=== PATIENT | male | born 1950 | race Caucasian/White ===

== ENCOUNTER 2019-03-10 21:12 | Emergency (ER) | payer MEDICARE ==
[~2019-03-10] VITALS: Ht 170.2 cm; Wt 82.0 kg
--- NOTE | 2019-03-10 21:34 | NUR ---
PT C/O FOOD POISONING. NAUSEA/VOMITING SINCE 1999, LAST ATE 1300. CONNECTED TO MONITORING. CALL LIGHT IN REACH. MD AT BEDSIDE. AWAITING ORDERS AT THIS TIME.
[2019-03-10] MEDS ORDERED: SODIUM CHLORIDE 0.9% 1,000 ML IV ONE (21:47)
[2019-03-10] MEDS ORDERED: ONDANSETRON 2MG/ML, 2ML IVPush ONE (22:00)
[2019-03-10] MEDS ORDERED: FAMOTIDINE 20 MG/2 ML IVPush ONE (22:00)
[2019-03-10] MEDS ORDERED: SODIUM CHLORIDE FLUSH 10ML SYR IVF ONE (22:00)
[2019-03-10] MEDS ORDERED: FAMOTIDINE 20 MG/2 ML ONE (22:24)
[2019-03-10] MEDS ORDERED: ONDANSETRON 2MG/ML, 2ML ONE (22:24)
--- NOTE | 2019-03-10 22:28 | NUR ---
IV START. LABS DRAWN. IVF STARTED. MEDS ADMIN PER APR. PT RESTING COMFORTABLY ON GURNEY. SHRUTHI.
[2019-03-10 22:41] LABS: MEAN CORPUSCULAR HEMOGLOBIN 32.8 pg (27.5-34.5); MEAN CORPUSCULAR HGB CONC 33.5 g/dL (33.2-36.2); MEAN CORPUSCULAR VOLUME 97.8 fL (81-97); MEAN PLATELET VOLUME 8.6 fL (7.4-10.4); RED BLOOD COUNT 4.93 x10^6/uL (4.38-5.82); RED CELL DISTRIBUTION WIDTH 15.8 % (9.4-14.8)
[2019-03-10 22:42] LABS: PLATELET COUNT 48 x10^3/uL (130-400)
[2019-03-10 22:44] LABS: ALANINE AMINOTRANSFERASE 36 U/L (12-78); ALBUMIN 3.9 g/dL (3.4-5.0); ANION GAP 8 mmol/L (5-15); CALCIUM 9.1 mg/dL (8.5-10.1); CHLORIDE 111 mmol/L (98-107); CREATININE 0.94 mg/dL (0.7-1.3)
[2019-03-10 22:48] LABS: ALKALINE PHOSPHATASE 96 U/L (45-117); BILIRUBIN,TOTAL 0.8 mg/dL (0.2-1.0); TOTAL PROTEIN 7.2 g/dL (6.4-8.2); TROPONIN I < 0.015 ng/mL (0.000-0.045)
[2019-03-10 22:59] LABS: BASOPHILS # (AUTO) 0.01 x10^3/uL (0-0.1); BASOPHILS % (AUTO) 0 % (0-1); EOSINOPHILS # (AUTO) 0.03 x10^3/uL (0-0.4); EOSINOPHILS % (AUTO) 1 % (1-7); LYMPHOCYTES # (AUTO) 0.35 x10^3/uL (1-3.4); LYMPHOCYTES % (AUTO) 8 % (22-44); MD SCAN; MONOCYTES # (AUTO) 0.28 x10^3/uL (0.2-0.8); MONOCYTES % (AUTO) 6 % (2-9); NEUTROPHILS # (AUTO) 3.77 x10^3/uL (1.8-6.8); NEUTROPHILS % (AUTO) 85 % (42-75)
--- NOTE | 2019-03-10 23:01 | NUR ---
ALL RESULTS ARE BACK AT THIS TIME. CHART UP FOR RECHECK.
[2019-03-10] MEDS ORDERED: ONDANSETRON ODT 8 MG PO ONE (23:30)
[2019-03-10] MEDS ORDERED: ONDANSETRON ODT 4 MG PO ONE (23:30)
[2019-03-11] MEDS ORDERED: ONDANSETRON ODT 8 MG ONE (00:44)
--- NOTE | 2019-03-11 00:47 | NUR ---
Pt previously d/c'd by Angy DUNBAR After pt was registered, pt went to RN station reports nausea and stating that he was supposed to get zofran before d/c. Assist BETTINA Tran clarified with . orderd PO zofran. Pt back to room 4 and medicated with 6mg zofran OTD. Pt alert, oriented. Pt VU. Pt retching, but no vomit noted.
[2019-03-11] MEDS ORDERED: ONDANSETRON ODT 8 MG PO ONE (01:00)
--- NOTE | 2019-03-11 01:18 | NUR ---
patient feeling much better. states still nauseous but no vomiting noted. discharged with prescription and instruction. ambulated to [facility].
[2019-03-11 01:19] VITALS: BP 138/79
== END 2019-03-11 00:19 ==
LOC: ED 03-11 00:13
DX: R11.2 Nausea with vomiting, unspecified (principal); R10.84 Generalized abdominal pain; I10 Essential (primary) hypertension; I25.10 Atherosclerotic heart disease of native coronary artery without angina pectoris; M10.9 Gout, unspecified; F17.210 Nicotine dependence, cigarettes, uncomplicated; Z95.1 Presence of aortocoronary bypass graft; Z88.6 Allergy status to analgesic agent
CPT/HCPCS: 36415; 80053; 83690; 84484; 85025; 93005; 96361; 96374; 96375; 99284; J2405; J3490; J7030; Q0162